=== PATIENT | male | born 1990 ===

== ENCOUNTER 2018-08-09 20:44 | Emergency (ER) | payer SELFPAY ==
[2018-08-09] MEDS: Naproxen 550 mg Tab PO STA (21:26)
[2018-08-09 21:39] VITALS: RESP 18; TEMP 97.8
--- NOTE | 2018-08-09 21:41 | C.PDOC ---
History Of Present Illness 27 year old male presents to the ED for evaluation of body aches, subjective fever, chills, epigastic pain, nausea, vomiting, non-productive cough, runny nose and sore throat for 2 days. Denies diarrhea and any other associated symptoms. Time Seen by Provider: 08/09/18 20:52 Chief Complaint (Nursing): Abdominal Pain History Per: Patient History/Exam Limitations: no limitations Onset/Duration Of Symptoms: Days (x2) Current Symptoms Are (Timing): Still Present Recent travel outside of the [place]: No Past Medical History Reviewed: Historical Data, Nursing Documentation, Vital Signs Vital Signs: Last Vital Signs Temp 97.8 F 08/09/18 20:57 Pulse 88 08/09/18 20:57 Resp 18 08/09/18 20:57 BP 132/84 08/09/18 20:57 Pulse Ox 99 08/09/18 20:57 Family History: States: Unknown Family Hx - Social History Hx Alcohol Use: No Hx Substance Use: No - Immunization History Hx Tetanus Toxoid Vaccination: No Hx Influenza Vaccination: No Hx Pneumococcal Vaccination: No Review Of Systems Constitutional: Positive for: Fever (subjective. ), Chills, Other (body aches. ) ENT: Positive for: Nose Discharge, Throat Pain (sore. ) Respiratory: Positive for: Cough (non-productive. ) Gastrointestinal: Positive for: Nausea, Vomiting, Abdominal Pain (epigastic. ). Negative for: Diarrhea Physical Exam - Physical Exam Appears: No Acute Distress, Other (comfortable. ) Skin: Normal Color, Warm, Dry Head: Atraumatic, Normacephalic Eye(s): bilateral: Normal Inspection Ear(s): Bilateral: Normal Nose: Normal, No Discharge Oral Mucosa: Moist Throat: Normal, No Erythema, No Exudate Neck: Normal ROM, Supple Chest: Symmetrical Cardiovascular: Rhythm Regular, No Murmur Respiratory: Normal Breath Sounds, No Rales, No Rhonchi, No Wheezing Gastrointestinal/Abdominal: Soft, Tenderness (mild tenderness to the epigastic region. ), No Other ((-) piper (-) Mcburney's.) Extremity: Normal ROM (x4) Neurological/Psych: Oriented x3, Normal Speech ED Course And Treatment O2 Sat by Pulse Oximetry: 99 (RA) Pulse Ox Interpretation: Normal Medical Decision Making Medical Decision Making: Plan: -Naproxen -Pepcid -Zofran -Influenza Progress/Update: Patient was PO challenged once. Disposition Counseled Patient/Family Regarding: Studies Performed, Diagnosis, Need For Followup, Rx Given - Disposition Referrals: [facility] at [facility] [Outside] Disposition: HOME/ ROUTINE Disposition Time: 10:10 Condition: STABLE Additional Instructions: FOLLOW UP WITH YOUR DOCTOR/CLINIC IN 1-2 DAYS USE MEDICATIONS DIRECTED DRINK PLENTY OF FLUIDS RETURN TO EMERGENCY ROOM IF YOUR SYMPTOMS BECOME WORSE SEGUIR CON LYLES MDICO / CLNICA EN 1-2 CEJA UTILICE MEDICAMENTOS SARAH SE DIRIGE BEBER MUCHO LQUIDO VUELVA A LA CHUCKIE DE EMERGENCIA SI LILIANE SNTOMAS SE HACEN PEOR Prescriptions: Benzonatate [Tessalon Perles] 100 mg PO BID PRN #15 sgl PRN Reason: Cough Naproxen 375 mg PO BID PRN #20 tablet PRN Reason: pain Ondansetron ODT [Zofran ODT] 1 odt PO BID PRN #15 odt PRN Reason: Nausea/Vomiting Oseltamivir Phosphate [Tamiflu] 75 mg PO BID #10 capsule Instructions: Flu, Adult (DC) Forms: [employer] (Uzbek) Print Language: MONTSERRATIAN - Clinical Impression Clinical Impression: Influenza A - Scribe Statement The provider has reviewed the documentation as recorded by the Scribe (Paola Hawthorne) Provider Attestation: All medical record entries made by the Scribe were at my direction and personally dictated by me. I have reviewed the chart and agree that the record accurately reflects my personal performance of the history, physical exam, medical decision making, and the department course for this patient. I have also personally directed, reviewed, and agree with the discharge instructions and disposition.
[2018-08-09] MEDS: Naproxen 550 mg Tab PO ONE (21:47)
[2018-08-09] MEDS: Alum-Mag Hydrox-Simethicone Susp (30 mL) PO STA (21:47)
[2018-08-09] MEDS ORDERED: Alum-Mag Hydrox-Simethicone Susp (30 mL) ONE (21:48)
[2018-08-09 22:21] VITALS: BP 130/81; PULSE 86; O2SAT 98
== END 2018-08-09 22:22 | disposition home or self-care (01) ==
LOC: C.ER 20:44
DX: J09.X2 Influenza due to identified novel influenza A virus with other respiratory manifestations (principal)